=== PATIENT | female | born 1990 | race Caucasian/White ===

== ENCOUNTER 2017-09-03 17:29 | Inpatient (IN) | payer MEDICAID ==
[2017-09-03 20:01] LABS: URINE BLOOD (Dip) POC Negative (NEGATIVE); URINE GLUCOSE (Dip) POC Negative (NEGATIVE); URINE KETONES (Dip) POC Negative (NEGATIVE); URINE LEUKOCYTE EST (Dip) POC Negative (NEGATIVE); URINE NITRITE (Dip) POC Negative (NEGATIVE); URINE TOTAL PROTEIN POC Negative (NEGATIVE)
[2017-09-03 20:01] LABS: URINE PH (Dip) POC 5.5 (5.0-8.5)
[2017-09-03] MEDS: ONDANSETRON 4 MG INJ IV ×2 (20:20→21:26)
[2017-09-03] MEDS: VANCOMYCIN 1 GM (PMX) 250 ML IVPB (20:22)
[2017-09-03] MEDS: SOD CHLORIDE 0.9% 1,000 ML IV (20:23)
[2017-09-03] MEDS: morphine 4 MG/ML VIAL IV (20:23)
[2017-09-03] MEDS ORDERED: ACETAMINOPHEN 325 MG TAB PO (20:30)
[2017-09-03 20:37] LABS: ADD MAN DIFF? NO
[2017-09-03 20:39] LABS: WHITE BLOOD COUNT 10.6 10^3/ul (4.8-10.8)
[2017-09-03 20:39] LABS: ABNORMAL IP MESSAGE 1; BASOPHIL # 0.1 10^3/ul (0.0-0.1); BASOPHILS % 0.8 % (0.0-2.0); EOSINOPHILS # 0.3 10^3/ul (0.0-0.5); HEMATOCRIT 27.5 % (37.0-47.0); HEMOGLOBIN 7.5 g/dl (12.0-16.0); LYMPHOCYTES # 2.3 10^3/ul (0.8-2.9); LYMPHOCYTES % 21.1 % (15.0-51.0); MEAN CORPUSCULAR HEMOGLOBIN 15.9 pg (29.0-33.0); MEAN CORPUSCULAR HGB CONC 27.3 g/dl (32.0-37.0); MEAN CORPUSCULAR VOLUME 58.1 fl (82.0-101.0); MEAN PLATELET VOLUME 10.1 fl (7.4-10.4); MONOCYTE # 0.6 10^3/ul (0.3-0.9); NEUTROPHIL # 7.3 10^3/ul (1.6-7.5); NEUTROPHILS % 68.7 % (39.0-77.0); PLATELET COUNT 463 10^3/UL (140-415); RED BLOOD COUNT 4.73 10^6/ul (4.20-5.40); RED CELL DISTRIBUTION WIDTH 22.5 % (11.5-14.5)
[2017-09-03 20:50] LABS: ALANINE AMINOTRANSFERASE 22 IU/L (13-69); ALBUMIN 3.7 g/dl (3.3-4.9); ALKALINE PHOSPHATASE 79 IU/L (42-121); ANION GAP 14 (8-16); ASPARTATE AMINO TRANSFERASE 24 IU/L (15-46); BLOOD UREA NITROGEN 15 mg/dl (7-20); CARBON DIOXIDE 22 mmol/L (21-31); CHLORIDE 105 mmol/L (97-110); CREATININE 0.66 mg/dl (0.44-1.00); GLUCOSE 81 mg/dl (70-220); SODIUM 137 mmol/L (135-144); TOTAL PROTEIN 7.4 g/dl (6.1-8.1)
[2017-09-03 20:51] LABS: POSITIVE DIFF @See below
[2017-09-03] MEDS: PIPER-TAZO 3.375 GM IV (PMX) 50 ML IV (22:50)
[2017-09-03] MEDS ORDERED: VANCOMYCIN IV PER PHARMACY XX (23:30)
[2017-09-03] MEDS ORDERED: HYDROCODONE/APAP (5/325) TAB PO (23:30)
[2017-09-03] MEDS ORDERED: ONDANSETRON 4 MG INJ IV (23:30)
[2017-09-03] MEDS ORDERED: ALBUTEROL/IPRATROPIUM (NEB) 3 ML AMP HHN (23:30)
[2017-09-03] MEDS ORDERED: NACL 0.9% 3 ML SYG IV (23:30)
[2017-09-03] MEDS ORDERED: morphine 2 MG INJ IV (23:30)
[2017-09-04] MEDS: IBUPROFEN 600 MG TAB PO ×4 (00:24→18:08)
[2017-09-04] MEDS: PIPER-TAZO 3.375 GM IV (PMX) 50 ML IV ×4 (00:25→20:16)
[2017-09-04 01:44] LABS: TOTAL IRON BINDING CAPACITY 372 ug/dl (241-421)
[2017-09-04 01:45] LABS: IRON < 10 ug/dl (35-150)
[2017-09-04 02:10] LABS: FERRITIN 2.3 ng/ml (6.2-137.0)
[2017-09-04] MEDS: VANCOMYCIN 1 GM in NS 250 ML IVPB ×3 (02:11→18:08)
[2017-09-04 02:46] LABS: IMMEDIATE SPIN CROSSMATCH 1 2
[2017-09-04] MEDS: SOD FERRIC GLUC COMPLX 125 MG in SOD CHLORIDE 0.9% 100 ML IVPB (09:48)
[2017-09-04 10:45] LABS: ADD MAN DIFF? NO
[2017-09-04 10:49] LABS: WHITE BLOOD COUNT 8.2 10^3/ul (4.8-10.8)
[2017-09-04 10:49] LABS: ABNORMAL IP MESSAGE 1; BASOPHIL # 0.1 10^3/ul (0.0-0.1); BASOPHILS % 1.2 % (0.0-2.0); EOSINOPHILS # 0.3 10^3/ul (0.0-0.5); EOSINOPHILS % 3.9 % (0.0-7.0); HEMATOCRIT 30.7 % (37.0-47.0); HEMOGLOBIN 8.7 g/dl (12.0-16.0); LYMPHOCYTES # 1.3 10^3/ul (0.8-2.9); LYMPHOCYTES % 16.3 % (15.0-51.0); MEAN CORPUSCULAR HEMOGLOBIN 17.4 pg (29.0-33.0); MEAN CORPUSCULAR HGB CONC 28.3 g/dl (32.0-37.0); MEAN CORPUSCULAR VOLUME 61.4 fl (82.0-101.0); MEAN PLATELET VOLUME 10.2 fl (7.4-10.4); MONOCYTE # 0.5 10^3/ul (0.3-0.9); MONOCYTES % 6.1 % (0.0-11.0); NEUTROPHIL # 5.9 10^3/ul (1.6-7.5); NEUTROPHILS % 72.3 % (39.0-77.0); PLATELET COUNT 434 10^3/UL (140-415); RED CELL DISTRIBUTION WIDTH 25.4 % (11.5-14.5)
[2017-09-04 10:56] LABS: POSITIVE DIFF @See below
[2017-09-04 11:12] LABS: ALANINE AMINOTRANSFERASE 24 IU/L (13-69); ALBUMIN 3.5 g/dl (3.3-4.9); ALBUMIN/GLOBULIN RATIO 0.92; ALKALINE PHOSPHATASE 62 IU/L (42-121); ANION GAP 14 (8-16); ASPARTATE AMINO TRANSFERASE 23 IU/L (15-46); BILIRUBIN,INDIRECT 0.3 mg/dl (0-1.1); BILIRUBIN,TOTAL 0.3 mg/dl (0.2-1.3); BLOOD UREA NITROGEN 16 mg/dl (7-20); CARBON DIOXIDE 24 mmol/L (21-31); CHLORIDE 108 mmol/L (97-110); CREATININE 0.83 mg/dl (0.44-1.00); GLUCOSE 80 mg/dl (70-220); MAGNESIUM 2.1 mg/dl (1.7-2.5); PHOSPHORUS 4.2 mg/dl (2.5-4.9); POTASSIUM 3.9 mmol/L (3.5-5.1); SODIUM 142 mmol/L (135-144); TOTAL PROTEIN 7.3 g/dl (6.1-8.1)
[2017-09-05] MEDS: PIPER-TAZO 3.375 GM IV (PMX) 50 ML IV ×4 (00:32→17:37)
[2017-09-05] MEDS: IBUPROFEN 600 MG TAB PO ×4 (00:33→17:37)
[2017-09-05 01:37] LABS: VANCOMYCIN,TROUGH 14.8 ug/ml (10.0-20.0)
[2017-09-05] MEDS: VANCOMYCIN 1 GM in NS 250 ML IVPB ×3 (02:20→18:10)
[2017-09-05] MEDS: SOD FERRIC GLUC COMPLX 125 MG in SOD CHLORIDE 0.9% 100 ML IVPB (09:43)
[2017-09-06] MEDS: IBUPROFEN 600 MG TAB PO ×4 (00:25→17:40)
[2017-09-06] MEDS: PIPER-TAZO 3.375 GM IV (PMX) 50 ML IV ×4 (01:05→20:04)
[2017-09-06] MEDS: VANCOMYCIN 1 GM in NS 250 ML IVPB ×3 (02:02→17:41)
[2017-09-06] MEDS: SOD FERRIC GLUC COMPLX 125 MG in SOD CHLORIDE 0.9% 100 ML IVPB (10:09)
[2017-09-06 12:30] LABS: INR 1.01; PARTIAL THROMBOPLASTIN TIME 35.5 Sec (25.0-35.0); PROTIME 13.4 Sec (11.9-14.9)
[2017-09-07] MEDS: IBUPROFEN 600 MG TAB PO ×4 (00:04→17:22)
[2017-09-07] MEDS: PIPER-TAZO 3.375 GM IV (PMX) 50 ML IV ×4 (01:01→19:42)
[2017-09-07] MEDS: VANCOMYCIN 1 GM in NS 250 ML IVPB ×3 (02:03→17:19)
[2017-09-07 05:51] LABS: ABNORMAL IP MESSAGE 1; HEMATOCRIT 30.9 % (37.0-47.0); HEMOGLOBIN 8.6 g/dl (12.0-16.0); MEAN CORPUSCULAR HEMOGLOBIN 17.8 pg (29.0-33.0); MEAN CORPUSCULAR HGB CONC 27.8 g/dl (32.0-37.0); MEAN CORPUSCULAR VOLUME 63.8 fl (82.0-101.0); MEAN PLATELET VOLUME 10.3 fl (7.4-10.4); PLATELET COUNT 386 10^3/UL (140-415); RED BLOOD COUNT 4.84 10^6/ul (4.20-5.40); RED CELL DISTRIBUTION WIDTH 25.5 % (11.5-14.5)
[2017-09-07 05:51] LABS: WHITE BLOOD COUNT 9.7 10^3/ul (4.8-10.8)
[2017-09-07 05:56] LABS: ADD MAN DIFF? YES; POSITIVE DIFF @See below
[2017-09-07 06:55] LABS: BLOOD UREA NITROGEN 10 mg/dl (7-20); CALCIUM 8.7 mg/dl (8.4-10.2); CARBON DIOXIDE 21 mmol/L (21-31); CHLORIDE 111 mmol/L (97-110); CREATININE 0.67 mg/dl (0.44-1.00); GLUCOSE 73 mg/dl (70-220); SODIUM 140 mmol/L (135-144)
[2017-09-07 06:56] LABS: ANION GAP 12 (8-16); POTASSIUM 3.9 mmol/L (3.5-5.1)
[2017-09-07] MEDS: LIDOCAINE 1% (MDV) 20 ML INJ (09:01)
[2017-09-07 09:46] LABS: ANISOCYTOSIS 3+ (0-0); BAND NEUTROPHILS #M 0.3 10^3/ul (0.0-0.6); BAND NEUTROPHILS % (M) 4 % (0-4); BASOPHILS % (M) 1 % (0-2); BURR CELLS 1+ (0-0); EOSINOPHILS % (M) 4 % (0-7); HYPOCHROMASIA 3+ (0-0); LYMPHOCYTES #M 2.8 10^3/ul (0.8-2.9); LYMPHOCYTES % (M) 29 % (15-51); MICROCYTOSIS 3+ (0-0); MONOCYTE #M 0.4 10^3/ul (0.3-0.9); MONOCYTES % (M) 5 % (0-11); OVALOCYTES 1+ (0-0); PLATELET ESTIMATE NORMAL; POIKILOCYTOSIS 3+ (0-0); POLYCHROMASIA 1+ (0-0); REACTIVE LYMPHOCYTES #M 0.1 10^3/ul (0.0-0.0); REACTIVE LYMPHOCYTES% (M) 2 % (0-0); SEG NEUT #M 5.4 10^3/ul (1.7-7.5); SEGMENTED NEUTROPHILS (M) % 55 % (39-77); SMUDGE%M 4 % (0-0)
[2017-09-08] MEDS: IBUPROFEN 600 MG TAB PO ×4 (00:06→18:03)
[2017-09-08] MEDS: PIPER-TAZO 3.375 GM IV (PMX) 50 ML IV ×3 (01:33→12:57)
[2017-09-08 01:36] LABS: VANCOMYCIN,TROUGH 14.9 ug/ml (10.0-20.0)
[2017-09-08] MEDS: VANCOMYCIN 1 GM in NS 250 ML IVPB ×3 (02:24→17:04)
[2017-09-08 06:07] LABS: ADD MAN DIFF? NO
[2017-09-08 06:36] LABS: WHITE BLOOD COUNT 8.9 10^3/ul (4.8-10.8)
[2017-09-08 06:36] LABS: ABNORMAL IP MESSAGE 1; BASOPHIL # 0.1 10^3/ul (0.0-0.1); BASOPHILS % 1.1 % (0.0-2.0); EOSINOPHILS # 0.6 10^3/ul (0.0-0.5); EOSINOPHILS % 6.3 % (0.0-7.0); HEMATOCRIT 30.3 % (37.0-47.0); HEMOGLOBIN 8.5 g/dl (12.0-16.0); LYMPHOCYTES # 2.5 10^3/ul (0.8-2.9); MEAN CORPUSCULAR HEMOGLOBIN 17.9 pg (29.0-33.0); MEAN CORPUSCULAR HGB CONC 28.1 g/dl (32.0-37.0); MEAN CORPUSCULAR VOLUME 63.7 fl (82.0-101.0); MONOCYTE # 0.5 10^3/ul (0.3-0.9); NEUTROPHIL # 5.2 10^3/ul (1.6-7.5); NEUTROPHILS % 58.2 % (39.0-77.0); PLATELET COUNT 377 10^3/UL (140-415); RED BLOOD COUNT 4.76 10^6/ul (4.20-5.40); RED CELL DISTRIBUTION WIDTH 27.8 % (11.5-14.5)
[2017-09-08 06:51] LABS: POSITIVE DIFF @See below
[2017-09-08 07:44] LABS: BLOOD UREA NITROGEN 9 mg/dl (7-20); CALCIUM 9.1 mg/dl (8.4-10.2); CARBON DIOXIDE 22 mmol/L (21-31); CHLORIDE 110 mmol/L (97-110); CREATININE 0.71 mg/dl (0.44-1.00); GLUCOSE 78 mg/dl (70-220); SODIUM 143 mmol/L (135-144)
[2017-09-08 08:43] LABS: ANION GAP 15 (8-16)
[2017-09-09] MEDS: IBUPROFEN 600 MG TAB PO ×5 (00:43→23:31)
[2017-09-09] MEDS: VANCOMYCIN 1 GM in NS 250 ML IVPB ×3 (02:39→17:36)
[2017-09-09] MEDS: LEVOFLOXACIN 500 MG TAB PO (06:03)
[2017-09-09 06:07] LABS: ADD MAN DIFF? NO
[2017-09-09 06:18] LABS: WHITE BLOOD COUNT 8.5 10^3/ul (4.8-10.8)
[2017-09-09 06:18] LABS: ABNORMAL IP MESSAGE 1; BASOPHIL # 0.1 10^3/ul (0.0-0.1); BASOPHILS % 1.3 % (0.0-2.0); EOSINOPHILS # 0.5 10^3/ul (0.0-0.5); EOSINOPHILS % 6.3 % (0.0-7.0); HEMOGLOBIN 8.5 g/dl (12.0-16.0); LYMPHOCYTES # 2.6 10^3/ul (0.8-2.9); LYMPHOCYTES % 30.6 % (15.0-51.0); MEAN CORPUSCULAR HGB CONC 27.4 g/dl (32.0-37.0); MEAN CORPUSCULAR VOLUME 65.7 fl (82.0-101.0); MONOCYTE # 0.7 10^3/ul (0.3-0.9); MONOCYTES % 8.6 % (0.0-11.0); NEUTROPHIL # 4.5 10^3/ul (1.6-7.5); NEUTROPHILS % 52.8 % (39.0-77.0); PLATELET COUNT 389 10^3/UL (140-415); RED BLOOD COUNT 4.72 10^6/ul (4.20-5.40); RED CELL DISTRIBUTION WIDTH 28.3 % (11.5-14.5)
[2017-09-09 06:47] LABS: ANION GAP 14 (8-16); BLOOD UREA NITROGEN 13 mg/dl (7-20); CARBON DIOXIDE 23 mmol/L (21-31); CHLORIDE 109 mmol/L (97-110); CREATININE 0.68 mg/dl (0.44-1.00); GLUCOSE 85 mg/dl (70-220); POTASSIUM 3.7 mmol/L (3.5-5.1); SODIUM 142 mmol/L (135-144)
[2017-09-09 07:09] LABS: POSITIVE DIFF @See below
[2017-09-09] MEDS: LIDOCAINE 1% (MPF) 5 ML VIAL SC (15:35)
[2017-09-10] MEDS: VANCOMYCIN 1 GM in NS 250 ML IVPB ×3 (01:52→18:20)
[2017-09-10 05:29] LABS: ADD MAN DIFF? NO
[2017-09-10 05:39] LABS: ABNORMAL IP MESSAGE 1; BASOPHIL # 0.1 10^3/ul (0.0-0.1); BASOPHILS % 0.7 % (0.0-2.0); EOSINOPHILS # 0.6 10^3/ul (0.0-0.5); EOSINOPHILS % 7.2 % (0.0-7.0); HEMATOCRIT 28.9 % (37.0-47.0); HEMOGLOBIN 8.3 g/dl (12.0-16.0); LYMPHOCYTES # 1.6 10^3/ul (0.8-2.9); LYMPHOCYTES % 20.5 % (15.0-51.0); MEAN CORPUSCULAR HEMOGLOBIN 18.7 pg (29.0-33.0); MEAN CORPUSCULAR HGB CONC 28.7 g/dl (32.0-37.0); MEAN CORPUSCULAR VOLUME 65.2 fl (82.0-101.0); MONOCYTE # 0.6 10^3/ul (0.3-0.9); MONOCYTES % 7.9 % (0.0-11.0); NEUTROPHIL # 4.8 10^3/ul (1.6-7.5); NEUTROPHILS % 63.3 % (39.0-77.0); PLATELET COUNT 310 10^3/UL (140-415); RED BLOOD COUNT 4.43 10^6/ul (4.20-5.40); RED CELL DISTRIBUTION WIDTH 29.8 % (11.5-14.5)
[2017-09-10 05:39] LABS: WHITE BLOOD COUNT 7.6 10^3/ul (4.8-10.8)
[2017-09-10 05:51] LABS: POSITIVE DIFF @See below
[2017-09-10] MEDS: IBUPROFEN 600 MG TAB PO ×4 (05:57→23:55)
[2017-09-10] MEDS: LEVOFLOXACIN 500 MG TAB PO (05:57)
[2017-09-10 06:25] LABS: ANION GAP 14 (8-16); BLOOD UREA NITROGEN 14 mg/dl (7-20); CALCIUM 8.5 mg/dl (8.4-10.2); CARBON DIOXIDE 21 mmol/L (21-31); CHLORIDE 109 mmol/L (97-110); CREATININE 0.64 mg/dl (0.44-1.00); GLUCOSE 87 mg/dl (70-220); POTASSIUM 3.8 mmol/L (3.5-5.1); SODIUM 140 mmol/L (135-144)
[2017-09-10] MEDS ORDERED: VANCOMYCIN 1 GM in NS 250 ML IVPB (09:59)
[2017-09-10 12:19] LABS: IRON 21 ug/dl (35-150)
[2017-09-10 12:29] LABS: % IRON SATURATION 6 % SAT (22-52); TOTAL IRON BINDING CAPACITY 363 ug/dl (241-421)
[2017-09-10 12:53] LABS: FERRITIN 25.8 ng/ml (6.2-137.0)
[2017-09-10] MEDS: SOD FERRIC GLUC COMPLX 125 MG in SOD CHLORIDE 0.9% 100 ML IVPB (14:21)
[2017-09-10] MEDS: FERROUS FUMARATE (SR) TAB PO ×2 (14:21→20:27)
[2017-09-11] MEDS: VANCOMYCIN 1 GM in NS 250 ML IVPB ×4 (02:11→23:47)
[2017-09-11] MEDS: LEVOFLOXACIN 500 MG TAB PO (05:36)
[2017-09-11] MEDS: IBUPROFEN 600 MG TAB PO ×4 (05:36→23:50)
[2017-09-11 06:29] LABS: ADD MAN DIFF? NO
[2017-09-11 06:39] LABS: ABNORMAL IP MESSAGE 1; BASOPHIL # 0.1 10^3/ul (0.0-0.1); BASOPHILS % 1.1 % (0.0-2.0); EOSINOPHILS # 0.6 10^3/ul (0.0-0.5); EOSINOPHILS % 7.7 % (0.0-7.0); HEMATOCRIT 31.3 % (37.0-47.0); HEMOGLOBIN 8.6 g/dl (12.0-16.0); LYMPHOCYTES # 1.5 10^3/ul (0.8-2.9); LYMPHOCYTES % 20.9 % (15.0-51.0); MEAN CORPUSCULAR HEMOGLOBIN 18.2 pg (29.0-33.0); MEAN CORPUSCULAR HGB CONC 27.5 g/dl (32.0-37.0); MEAN CORPUSCULAR VOLUME 66.3 fl (82.0-101.0); MONOCYTE # 0.6 10^3/ul (0.3-0.9); MONOCYTES % 8.5 % (0.0-11.0); NEUTROPHIL # 4.5 10^3/ul (1.6-7.5); NEUTROPHILS % 61.5 % (39.0-77.0); PLATELET COUNT 303 10^3/UL (140-415); RED BLOOD COUNT 4.72 10^6/ul (4.20-5.40); RED CELL DISTRIBUTION WIDTH 30.1 % (11.5-14.5)
[2017-09-11 06:39] LABS: WHITE BLOOD COUNT 7.3 10^3/ul (4.8-10.8)
[2017-09-11 06:53] LABS: POSITIVE DIFF @See below
[2017-09-11 08:54] LABS: ANION GAP 14 (8-16); BLOOD UREA NITROGEN 13 mg/dl (7-20); CALCIUM 8.8 mg/dl (8.4-10.2); CARBON DIOXIDE 20 mmol/L (21-31); CHLORIDE 111 mmol/L (97-110); CREATININE 0.68 mg/dl (0.44-1.00); GLUCOSE 75 mg/dl (70-220); SODIUM 141 mmol/L (135-144)
[2017-09-11] MEDS: FERROUS FUMARATE (SR) TAB PO ×2 (10:05→21:23)
[2017-09-12] MEDS: LEVOFLOXACIN 500 MG TAB PO (06:54)
[2017-09-12] MEDS: VANCOMYCIN 1 GM in NS 250 ML IVPB ×3 (06:54→23:25)
[2017-09-12] MEDS: IBUPROFEN 600 MG TAB PO ×4 (06:54→23:40)
[2017-09-12] MEDS: FERROUS FUMARATE (SR) TAB PO ×2 (09:25→21:11)
[2017-09-12] MEDS: ACETAMINOPHEN 325 MG TAB PO (23:25)
[2017-09-13] MEDS: LEVOFLOXACIN 500 MG TAB PO (06:56)
[2017-09-13] MEDS: VANCOMYCIN 1 GM in NS 250 ML IVPB ×2 (06:56→16:28)
[2017-09-13] MEDS: IBUPROFEN 600 MG TAB PO ×3 (06:56→18:02)
[2017-09-13] MEDS: FERROUS FUMARATE (SR) TAB PO ×2 (09:21→20:49)
[2017-09-13 15:31] LABS: ADD MAN DIFF? NO
[2017-09-13 15:40] LABS: ABNORMAL IP MESSAGE 1; BASOPHILS % 0.5 % (0.0-2.0); EOSINOPHILS # 0.1 10^3/ul (0.0-0.5); EOSINOPHILS % 3.3 % (0.0-7.0); HEMATOCRIT 30.3 % (37.0-47.0); HEMOGLOBIN 8.9 g/dl (12.0-16.0); LYMPHOCYTES # 0.3 10^3/ul (0.8-2.9); LYMPHOCYTES % 8.5 % (15.0-51.0); MEAN CORPUSCULAR HEMOGLOBIN 19.4 pg (29.0-33.0); MEAN CORPUSCULAR HGB CONC 29.4 g/dl (32.0-37.0); MONOCYTE # 0.1 10^3/ul (0.3-0.9); MONOCYTES % 3.3 % (0.0-11.0); NEUTROPHIL # 3.1 10^3/ul (1.6-7.5); NEUTROPHILS % 83.9 % (39.0-77.0); PLATELET COUNT 279 10^3/UL (140-415); RED BLOOD COUNT 4.59 10^6/ul (4.20-5.40)
[2017-09-13 15:40] LABS: WHITE BLOOD COUNT 3.6 10^3/ul (4.8-10.8)
[2017-09-13 15:56] LABS: ANION GAP 14 (8-16); BLOOD UREA NITROGEN 13 mg/dl (7-20); CALCIUM 8.5 mg/dl (8.4-10.2); CARBON DIOXIDE 20 mmol/L (21-31); CHLORIDE 109 mmol/L (97-110); CREATININE 0.62 mg/dl (0.44-1.00); GLUCOSE 123 mg/dl (70-220); POTASSIUM 3.6 mmol/L (3.5-5.1); SODIUM 139 mmol/L (135-144)
[2017-09-13 16:11] LABS: POSITIVE DIFF @See below
[2017-09-13] MEDS: ACETAMINOPHEN 325 MG TAB PO (19:28)
[2017-09-14] MEDS: VANCOMYCIN 1 GM in NS 250 ML IVPB ×3 (00:07→15:38)
[2017-09-14] MEDS: IBUPROFEN 600 MG TAB PO ×5 (00:07→23:18)
[2017-09-14] MEDS: LEVOFLOXACIN 500 MG TAB PO (05:18)
[2017-09-14 06:34] LABS: WHITE BLOOD COUNT 4.1 10^3/ul (4.8-10.8)
[2017-09-14 06:34] LABS: ABNORMAL IP MESSAGE 1; HEMATOCRIT 31.7 % (37.0-47.0); HEMOGLOBIN 9.3 g/dl (12.0-16.0); MEAN CORPUSCULAR HEMOGLOBIN 19.6 pg (29.0-33.0); MEAN CORPUSCULAR HGB CONC 29.3 g/dl (32.0-37.0); MEAN CORPUSCULAR VOLUME 66.9 fl (82.0-101.0); PLATELET COUNT 229 10^3/UL (140-415); RED BLOOD COUNT 4.74 10^6/ul (4.20-5.40); RED CELL DISTRIBUTION WIDTH 32.6 % (11.5-14.5)
[2017-09-14 06:37] LABS: POSITIVE DIFF @See below
[2017-09-14 06:38] LABS: ADD MAN DIFF? YES
[2017-09-14 07:08] LABS: ANION GAP 16 (8-16); BLOOD UREA NITROGEN 10 mg/dl (7-20); CALCIUM 8.7 mg/dl (8.4-10.2); CARBON DIOXIDE 22 mmol/L (21-31); CHLORIDE 108 mmol/L (97-110); CREATININE 0.63 mg/dl (0.44-1.00); GLUCOSE 79 mg/dl (70-220); POTASSIUM 3.9 mmol/L (3.5-5.1); SODIUM 142 mmol/L (135-144)
[2017-09-14 07:22] LABS: MAGNESIUM 1.7 mg/dl (1.7-2.5)
[2017-09-14 07:22] LABS: PHOSPHORUS 4.3 mg/dl (2.5-4.9)
[2017-09-14] MEDS: FERROUS FUMARATE (SR) TAB PO ×2 (08:57→20:04)
[2017-09-14 09:48] LABS: ANISOCYTOSIS 3+ (0-0); BAND NEUTROPHILS #M 1.1 10^3/ul (0.0-0.6); BAND NEUTROPHILS % (M) 28 % (0-4); BASOPHILS % (M) 2 % (0-2); EOSINOPHILS % (M) 7 % (0-7); HYPOCHROMASIA 2+ (0-0); LYMPHOCYTES #M 0.2 10^3/ul (0.8-2.9); LYMPHOCYTES % (M) 7 % (15-51); MICROCYTOSIS 3+ (0-0); MONOCYTES % (M) 1 % (0-11); OVALOCYTES 2+ (0-0); PLATELET ESTIMATE NORMAL; POIKILOCYTOSIS 2+ (0-0); POLYCHROMASIA 2+ (0-0); SEG NEUT #M 2.3 10^3/ul (1.7-7.5); SEGMENTED NEUTROPHILS (M) % 55 % (39-77); SMUDGE%M 2 % (0-0)
[2017-09-14] MEDS: ACETAMINOPHEN 325 MG TAB PO (10:38)
[2017-09-14 15:12] LABS: VANCOMYCIN,TROUGH 10.9 ug/ml (10.0-20.0)
[2017-09-14] MEDS: VANCOMYCIN 1.25 GM in SODIUM CHLORIDE 0.45 % 250 ML IVPB (23:18)
[2017-09-15] MEDS: ACETAMINOPHEN 325 MG TAB PO (02:32)
[2017-09-15 04:19] LABS: ADD MAN DIFF? NO
[2017-09-15 04:21] LABS: BASOPHILS % 0.3 % (0.0-2.0); EOSINOPHILS % 6.1 % (0.0-7.0); HEMATOCRIT 29.3 % (37.0-47.0); HEMOGLOBIN 8.6 g/dl (12.0-16.0); LYMPHOCYTES % 12.6 % (15.0-51.0); MEAN CORPUSCULAR HEMOGLOBIN 19.6 pg (29.0-33.0); MEAN CORPUSCULAR HGB CONC 29.4 g/dl (32.0-37.0); MEAN CORPUSCULAR VOLUME 66.9 fl (82.0-101.0); MONOCYTES % 4.1 % (0.0-11.0); NEUTROPHIL # 2.6 10^3/ul (1.6-7.5); NEUTROPHILS % 76.3 % (39.0-77.0); PLATELET COUNT 232 10^3/UL (140-415); RED BLOOD COUNT 4.38 10^6/ul (4.20-5.40); RED CELL DISTRIBUTION WIDTH 33.3 % (11.5-14.5)
[2017-09-15 04:21] LABS: WHITE BLOOD COUNT 3.4 10^3/ul (4.8-10.8)
[2017-09-15 04:22] LABS: ABNORMAL IP MESSAGE 1; EOSINOPHILS # 0.2 10^3/ul (0.0-0.5); LYMPHOCYTES # 0.4 10^3/ul (0.8-2.9); MONOCYTE # 0.1 10^3/ul (0.3-0.9)
[2017-09-15 04:50] LABS: MAGNESIUM 1.8 mg/dl (1.7-2.5)
[2017-09-15 04:50] LABS: PHOSPHORUS 3.9 mg/dl (2.5-4.9)
[2017-09-15 04:52] LABS: ANION GAP 11 (8-16); BLOOD UREA NITROGEN 11 mg/dl (7-20); CALCIUM 8.2 mg/dl (8.4-10.2); CARBON DIOXIDE 22 mmol/L (21-31); CHLORIDE 109 mmol/L (97-110); CREATININE 0.63 mg/dl (0.44-1.00); GLUCOSE 99 mg/dl (70-220); POTASSIUM 3.7 mmol/L (3.5-5.1); SODIUM 138 mmol/L (135-144)
[2017-09-15 05:07] LABS: POSITIVE DIFF @See below
[2017-09-15] MEDS: IBUPROFEN 600 MG TAB PO ×3 (05:55→17:52)
[2017-09-15] MEDS: LEVOFLOXACIN 500 MG TAB PO (05:55)
[2017-09-15] MEDS: FERROUS FUMARATE (SR) TAB PO ×2 (08:55→20:18)
[2017-09-15] MEDS: VANCOMYCIN 1.25 GM in SODIUM CHLORIDE 0.45 % 250 ML IVPB (08:55)
[2017-09-15] MEDS ORDERED: DIPHENHYDRAMINE 50 MG INJ (12:09)
[2017-09-15] MEDS: DIPHENHYDRAMINE 50 MG INJ IV ×3 (12:19→18:49)
[2017-09-15] MEDS ORDERED: FAMOTIDINE 20 MG INJ (12:23)
[2017-09-15] MEDS: FAMOTIDINE 20 MG INJ IV (12:27)
[2017-09-15] MEDS: TRIMETHOPRIM/SULFAMETHOX (DS) TAB PO (20:18)
[2017-09-16] MEDS: LEVOFLOXACIN 500 MG TAB PO (06:08)
[2017-09-16] MEDS: TRIMETHOPRIM/SULFAMETHOX (DS) TAB PO (08:42)
[2017-09-16] MEDS: FERROUS FUMARATE (SR) TAB PO (08:42)
== END 2017-09-16 14:49 | disposition home or self-care (01) | DRG 601 ==
LOC: FTE 17:29 → PP2 20:05
PROVIDERS: Internal Medicine
PROC: 0H9U3ZX Drainage of Left Breast, Percutaneous Approach, Diagnostic (ICD-10-PCS; principal; 2017-09-07)
PROC: 02HV33Z Insertion of Infusion Device into Superior Vena Cava, Percutaneous Approach (ICD-10-PCS; 2017-09-09)
DX: N61.1 Abscess of the breast and nipple (principal); D50.9 Iron deficiency anemia, unspecified; L27.0 Generalized skin eruption due to drugs and medicaments taken internally; T36.8X5A Adverse effect of other systemic antibiotics, initial encounter; Y92.238 Other place in hospital as the place of occurrence of the external cause
CPT/HCPCS: 36430; 36569; 71010; 76641; 76642; 76937; 76942; 80048; 80053; 80202; 81003; 82728; 83540; 83735; 84100; 85025; 85610; 85730; 86850; 86900; 86901; 86920; 87040; 87070; 87075; 96374; 96375; 96376; 99285-25; G0378

== ENCOUNTER 2017-09-20 18:59 | Emergency (ER) | payer MEDICAID | END 2017-09-20 21:00 | disposition home or self-care (01) | LOC: E/R 21:00 | DX: L27.0 Generalized skin eruption due to drugs and medicaments taken internally (principal); Z87.891 Personal history of nicotine dependence | CPT/HCPCS: 99283; Z7502 ==